=== PATIENT | female | born 1985 | race Caucasian/White ===

== ENCOUNTER → 2016-08-20 | Outpatient (CLI) | payer MEDICAID, OTHER ==
[2016-01-14 09:47] VITALS: BP 82/44
[2016-08-20 18:34] LABS: BILIRUBIN,URINE NEGATIVE (NEGATIVE); BLOOD/HEMOGLOBIN,URINE NEGATIVE (NEGATIVE); GLUCOSE, URINE NEGATIVE (NEGATIVE); KETONES,URINE NEGATIVE (NEGATIVE); LEUKOCYTE ESTERASE ,URINE 2+ (NEGATIVE); NITRITES,URINE NEGATIVE (NEGATIVE); PROTEIN,URINE 1+ (NEGATIVE); UROBILINOGEN,URINE 2+ (NORMAL)
[2016-08-20 18:40] LABS: BLOOD UREA NITROGEN 12 mg/dL (7-18); CALCIUM 8.8 mg/dL (8.5-10.1); CARBON DIOXIDE 25.3 mmol/L (21-32); CHLORIDE 103 mmol/L (98-107); COR NA(FOR HYPERGLY) 137 mmol/L (136-145); CREATININE 0.57 mg/dL (0.55-1.02); GLUCOSE 123 mg/dL (65-99); SODIUM 136 mmol/L (136-145); eGFR BLACK RACES > 60 (>60); eGFR NON BLACK RACES > 60 (>60)
[2016-08-20 18:47] LABS: APPEARANCE,URINE SLIGHTLY HAZY (CLEAR); BASOPHILS # (AUTO) 0.1 X10^3/uL (0.0-0.1); BASOPHILS % (AUTO) 0.5 % (0.2-1.0); COLOR,URINE DARK YELLOW (YELLOW); EOSINOPHILS # (AUTO) 0.1 x10^3/uL (0.0-0.2); EOSINOPHILS % (AUTO) 0.6 % (0.9-2.9); HEMATOCRIT 33.6 % (36.0-47.0); HEMOGLOBIN 11.5 g/dL (12.0-16.0); MEAN CORPUSCULAR HGB CONC 34.1 g/dL (33.0-35.0); MEAN CORPUSCULAR VOLUME 90.9 fL (80.0-100.0); MEAN PLATELET VOLUME 10.5 fL (7.4-11.0); MONOCYTES # (AUTO) 0.7 x10^3/uL (0.3-0.8); MONOCYTES % (AUTO) 5.7 % (0.0-13.0); NEUTROPHILS # (AUTO) 9.8 x10^3/uL (2.2-4.8); NEUTROPHILS % (AUTO) 77.2 % (42.0-75.0); PLATELET COUNT 238 X10^3/uL (150.0-450.0); RED CELL DISTRIBUTION WIDTH 12.5 % (11.6-16.5); WHITE BLOOD COUNT 12.7 X10^3/uL (3.6-10.0)
[2016-08-20 18:48] LABS: AMORPHOUS SEDIMENT,UR TRACE /HPF (NEGATIVE); BACTERIA,URINE 1+ /HPF (NEGATIVE); MUCUS,URINE FEW /HPF (NEGATIVE); SQUAMOUS EPITHELIAL CELL,UR NUMEROUS /HPF (NEGATIVE)
[2016-08-20 18:49] LABS: CALCIUM OXALATE CRYSTALS,UR MODERATE /HPF (NEGATIVE)
== END ==
LOC: LAB 17:49
PROVIDERS: ATTEND Specialist
DX: Z01.812 Encounter for preprocedural laboratory examination (principal); Z34.83 Encounter for supervision of other normal pregnancy, third trimester
CPT/HCPCS: 36415; 80048; 81001; 85025; 86592; 86850; 86900; 86901

== ENCOUNTER 2016-08-25 06:40 | Inpatient (IN) | payer MEDICAID, OTHER ==
[~2016-08-25 06:40] MED LIST: AMPICILLIN VIAL 2 GM ONE; D5 1/2 NS 1000 ML 1,000 ML IV ONE; D5 1/2 NS 1000ML W PITOCIN 20 U/L 1,000 ML IV ONE; D5LR 1000ML W PITOCIN 10 U/L 1,000 ML IV ONE; NS 100 ML IV 100 ML IV ONE; PITOCIN ONE
--- NOTE | 2016-08-25 07:14 | DR.OB ---
OB Quick Note - Assessment/Plan Assessment/Plan: L&D 08/25/16 at 7:05am S-No complaint. O-Afebrile,VSS VDM=550 with good LTV, +accel, no decel. CTX=mild irritability CVX=2cm/thick/-1/VTX AROM with clear fluid. IUPC and FSE placed. A-IUP at 38 3/7 weeks for induction Oligohydramnios +GBS Anemia P-Begin pitocin induction IV ABX in labor Anticipate
[2016-08-25] MEDS ORDERED: PHENERGAN INJ 25 MG IV PRN ×3 (07:43→11:53)
[2016-08-25] MEDS ORDERED: NUBAIN INJ 200 MG VIAL MULTIDOSE IVP PRN (07:43)
[2016-08-25] MEDS ORDERED: D5 1/2 NS 1000 ML 1,000 ML IV SCH (07:43)
[2016-08-25] MEDS ORDERED: PITOCIN 10 UNITS in D5 LR 1000 ML 1,000 ML IV PRN (07:43)
[2016-08-25] MEDS ORDERED: REGLAN INJ 10 MG VIAL IVP PRN ×2 (07:43→11:53)
[2016-08-25] MEDS ORDERED: MORPHINE SULFATE INJ 2 MG IVP PRN (07:43)
[2016-08-25] MEDS ORDERED: AMPICILLIN VIAL 2 GM 2 GM in NS 100 ML IV + SPIKE MINIBAG* 100 ML IV SCH (07:43)
[2016-08-25] MEDS ORDERED: AMPICILLIN VIAL 1 GM 1 GM in NS 50 ML IV + SPIKE MINIBAG* 50 ML IV SCH (07:43)
[2016-08-25] MEDS ORDERED: PITOCIN IVP ONE (07:43)
[2016-08-25] MEDS ORDERED: FENTANYL INJ 100 mcg ONE (09:03)
[2016-08-25] MEDS ORDERED: LR 1000 ML IV 1,000 ML IV ONE ×2 (09:04→09:12)
[2016-08-25] MEDS ORDERED: NAROPIN EPIDURAL 0.2% + FENTANYL 90MCG 60 ML EPI ONE (09:04)
[2016-08-25] MEDS ORDERED: FENTANYL INJ 100 mcg EPI ONE (09:12)
[2016-08-25] MEDS ORDERED: NAROPIN EPIDURAL 0.2% 60 ML with FENTANYL INJ 100 mcg 90 MCG IVP SCH ×2 (10:00)
[2016-08-25] MEDS ORDERED: MOTRIN TAB 800 MG PO PRN (10:47)
[2016-08-25] MEDS ORDERED: D5 1/2 NS 1000 ML 1,000 ML with PITOCIN 20 UNITS IV SCH ×2 (11:00)
[2016-08-25] MEDS: D5 1/2 NS 1000 ML 1,000 ML with PITOCIN 20 UNITS IV SCH ×4 (11:30→20:25)
[2016-08-25] MEDS ORDERED: AMBIEN PO PRN (11:53)
[2016-08-25] MEDS ORDERED: DERMOPLAST SPRAY TOP PRN (11:53)
[2016-08-25] MEDS ORDERED: ADACEL TDaP IM ONE ×2 (11:53→14:10)
[2016-08-25] MEDS ORDERED: MILK OF MAGNESIA PO PRN (11:53)
--- NOTE | 2016-08-25 13:30 | DR.OB ---
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 Head delivered over intact perineum. No nuchal cord. Nose and mouth bulb suctioned. Body delivered over intact perineum. Cord clamped x 2 and cut. Infant handed to attendant. Cord sent for gases. Placenta delivered manually / intact / 3 vessel cord as cord avulsed. No CVX / vaginal / perineal tears. Viable female infant, VTX/OA, wt=7'3" and 8/9, stable to NBN. Mother stable to RR. [id number].
[2016-08-25] MEDS: MOTRIN TAB 800 MG PO PRN (17:00)
[2016-08-25] MEDS: ZANTAC PO SCH (20:25)
[2016-08-26 05:10] LABS: HEMATOCRIT 34.5 % (36.0-47.0); HEMOGLOBIN 11.8 g/dL (12.0-16.0)
[2016-08-26] MEDS: D5 1/2 NS 1000 ML 1,000 ML with PITOCIN 20 UNITS IV SCH ×2 (05:24)
[2016-08-26] MEDS ORDERED: DEPO-PROVERA CONTRACEPTIVE INJ IM ONE (07:37)
[2016-08-26] MEDS: MOTRIN TAB 800 MG PO PRN (08:47)
[2016-08-26] MEDS ORDERED: PRENATAL PLUS PO SCH (09:00)
[2016-08-26] MEDS: ZANTAC PO SCH (09:36)
[2016-08-26 12:44] VITALS: BP 116/72
== END 2016-08-26 13:50 | disposition home or self-care (01) | DRG 775 ==
LOC: LD 06:40 → MED/SURG 13:21
PROVIDERS: ADMIT Specialist; ATTEND Specialist
PROC: 10E0XZZ Delivery of Products of Conception, External Approach (ICD-10-PCS; principal; 2016-08-25)
PROC: 10907ZC Drainage of Amniotic Fluid, Therapeutic from Products of Conception, Via Natural or Artificial Opening (ICD-10-PCS; 2016-08-25)
PROC: 3E033VJ Introduction of Other Hormone into Peripheral Vein, Percutaneous Approach (ICD-10-PCS; 2016-08-25)
PROC: 00HU33Z Insertion of Infusion Device into Spinal Canal, Percutaneous Approach (ICD-10-PCS; 2016-08-25)
PROC: 3E0234Z Introduction of Serum, Toxoid and Vaccine into Muscle, Percutaneous Approach (ICD-10-PCS; 2016-08-25)
DX: O41.03X0 Oligohydramnios, third trimester, not applicable or unspecified (principal); Z37.0 Single live birth; O99.824 Streptococcus B carrier state complicating childbirth; B95.1 Streptococcus, group B, as the cause of diseases classified elsewhere; O99.013 Anemia complicating pregnancy, third trimester; D50.8 Other iron deficiency anemias; O00.01 Abdominal pregnancy with intrauterine pregnancy; Z23 Encounter for immunization; Z3A.38 38 weeks gestation of pregnancy
CPT/HCPCS: 09167; 36415; 59409; 85014; 85018; A4222; S0197; J0290; J1050; J2590; J3010; J7042; J7120

== ENCOUNTER 2016-11-23 21:09 | Emergency (ER) | payer OTHER ==
[2016-11-23 21:17] VITALS: BP 121/69; BMI 29.9
--- NOTE | 2016-11-23 23:55 | DR.GENAD ---
HPI - PCP Primary Care Physician: SAURAV - HPI Comment HPI Comment: PATIENT HIT TOE. HAPPEN BEFORE COMMING. - Complaint/Symptoms Chief Complaint Doctors Comments: LEFT GREAT TOE INJURY, NAIL ALMOST OFF. HAPPEN TODAY. Chief Complaint:: LEFT GREAT TOE WAS HIT BY A DOOR AND LEFT GREAT TOENAIL IS LIFTED. LEFT GREAT TOE PAIN WHEN BENDING. - Nurses notes reviewed Nurses Notes Review: Yes - Source History Provided: Patient - Mode of Arrival Mode of Arrival: Ambulatory - Timing Onset of Chief Complaint: 11/23/16 Came on: Suddenly - Duration Duration: Constant Duration: Hours PMH - PMH Past Medical History: Yes Past Medical History: Anxiety Past Surgical History: No - Family History History of Family Medical Conditions: Yes Family Medical History: Diabetes Mellitus, Cancer, Hypertension - Social History Type of Tobacco Use: None Alcohol Use: None Do you use any recreational Drugs:: No Lives With: Family Lives Where: Home - infectious screening In the last 2 months have you had wt loss of >10#?: NO Have you had fever, night sweats or hemotysis?: No Have you traveled outside the country in the last 6 months?: No Isolation: Standard ROS - Review of Systems Constitutional: No Symptoms Reported Eyes: No Symptoms Reported ENTM: No Symptoms Reported Respiratoy: No Symptoms Reported Cardiovascular: No Symptoms Reported Gastrointestinal/Abdominal: No Symptoms Reported Genitourinary: No Symptoms Reported Neurological: No Symptoms Reported Musculoskeletal: Left, Foot Integumentary: Change in Color, Bruises, Other (NAIL BED INJURY LT GREAT TOE.) Hematologic/Lymphatic: No Symptoms Reported Endocrine: No Symptoms Reported All Other Systems: Reviewed and Negative PE - Vital Signs Vitals: Temperature 98.3 F Pulse Rate 93 Respiratory Rate 22 Blood Pressure [Left Arm] 126/60 Blood Pressure [Right Arm] 116/72 Blood Pressure 121/69 O2 Sat by Pulse Oximetry 98 - General Limitations: No Limitations General Appearance: Alert - Head Head Exam: Normal Inspection - Eyes Eye exam: Normal Appearance - ENT ENT Exam: Normal External Ear Exam External Ear Exam: Normal External Inspection TM/Canal Exam: Bilateral Normal Nose Exam: Normal Nose Exam Mouth Exam: Normal Inspection - Neck Neck Exam: Trachea Midline - Chest Chest Inspection: Symmetric Chest Wall Rise - Respiratory Respiratory Exam: Normal Lung Sounds Bilat Respiratory Exam: Bilateral Clear to Auscultation, Bilateral Wheezing, Bilateral Rales, Bilateral Rhonchi, Bilateral Crackles, Bilateral Decreased Breath Sounds, Bilateral Dullness on Percussion - Abdominal Exam Abdominal Exam: Normal Inspection - Extremities Extremities Exam: Tenderness (SWELLING, BRUISING AND TENDERNESS LT GREAT TOE, NAIL ALMOST OFF GREAT TOE.) - Back Back Exam: Normal Inspection - Neurologic Neurological Exam: Alert, Oriented X3 - Psychiatric Psychiatric Exam: Normal Affect, Normal Mood - Skin Skin Exam: Erythema, Other (LT GREAT TOE ALMOST OFF. SWELLING AND TENDERNESS LT BIG TOE.) MDM - Differential Diagnosis Differential Diagnosis: FRACTURE, SPRAIN, CONTUSION AND LAC LEFT GREAT TOE. Course - Treatment Treatment: SEE ORDERS. - Education/Counseling Education/Counseling: Patient, Education Educated On: Diagnosis, Needs for Follow Up ROR - XRAY XRAY Interpreted by: Radiologist XRAY Findings: REPORT DISCUSS WITH PATIENT. - Diagnosis Discharge Problem: Injury of nail bed of toe Fracture of toe of left foot Qualifiers: Encounter type: initial encounter Toe: great toe Fracture type: closed Phalanx : distal Fracture alignment: nondisplaced Qualified Code(s): S92.425A - Nondisplaced fracture of distal phalanx of left great toe, initial encounter for closed fracture - Discharge Plan Disposition: 01 HOME, SELF-CARE Condition: Stable Prescriptions: Ibuprofen [MOTRIN TAB 800 MG *] 800 mg PO Q8H PRN #20 tab PRN Reason: Pain/Inflammation - Follow ups/Referrals Follow ups/Referrals: SIM CARIAS [Primary Care Provider] - 3 days CARRILLO SOLIS [STAFF PHYSICIAN] - 3 days DERIAN WARREN [STAFF PHYSICIAN] - 2 days - Instructions Instructions: Toe Fracture, [id number], Nail Bed Laceration Additional Instructions: RETURN TO ED IF WORSE.
--- NOTE | 2016-11-24 00:40 | RAD ---
EXAM: Left foot x-ray INDICATION: Pain 1st digit COMPARISION: None TECHNIQUE: AP, lateral, and oblique, three views FINDINGS: There is a T-shaped fracture extending through the mid to proximal aspect of the distal phalanx of th e 1st digit. Fracture is nondisplaced. Fracture extends to the articular surface. The joint spaces ar e preserved. The soft tissues are normal. No radiopaque foreign body. IMPRESSION: There is nondisplaced fracture of the distal phalanx of the 1st digit. Reported By:
[2016-11-24] MEDS ORDERED: NEOSPORIN OINT TOP ONE (01:18)
[2016-11-24] MEDS ORDERED: NEOSPORIN OINT ONE (01:19)
== END 2016-11-24 01:40 | disposition home or self-care (01) ==
LOC: ER 21:09
DX: S92.425A Nondisplaced fracture of distal phalanx of left great toe, initial encounter for closed fracture (principal); S99.922A Unspecified injury of left foot, initial encounter; X58.XXXA Exposure to other specified factors, initial encounter; Y92.9 Unspecified place or not applicable
CPT/HCPCS: 73630; 99282

== ENCOUNTER → 2017-02-25 | Outpatient (CLI) | payer OTHER ==
--- NOTE | 2017-02-25 15:28 | MRI ---
HISTORY: Back pain Study: MRI lumbar spine without contrast Comparison: None Technique: Multi planar multi sequence noncontrast imaging Findings: The vertebral body alignment and bone signal is normal. The disc levels are evaluated as follows: T12-L1 level: No evidence for compressive disc disease. The neural foramina are patent. The joints ar e normal. L1-2 level: No evidence for compressive disc disease. The neural foramina are patent. The joints are normal. L2-3 level: No evidence for compressive disc disease. The neural foramina are patent. The joints are normal. L3-4 level: No evidence for compressive disc disease. The neural foramina are patent. The joints are normal. L4-5 level: There is mild desiccation of the disc. There is no evidence for compressive disc disease. The neural foramina are patent. The joints are normal. L5-S1 level: No evidence for compressive disc disease. The neural foramina are patent. The joints are normal. IMPRESSION: As above Reported By:
== END | disposition home or self-care (01) | DRG 552 ==
LOC: RAD 14:09
PROVIDERS: ATTEND Specialist
DX: M54.5 Low back pain (principal); M51.86 Other intervertebral disc disorders, lumbar region
CPT/HCPCS: 72148

== ENCOUNTER → 2017-04-17 | Outpatient (CLI) | payer OTHER ==
--- NOTE | 2017-04-17 13:48 | MRI ---
STUDY: MRI OF THE THORACIC SPINE History: Radiculopathy. Mid back pain. Technique: An MRI examination of thoracic spine was performed using sagittal T1, T2, T2 STIR, and axi al T1 and T2 GRE images. Comparison: None. Findings: Vertebral body alignment is within normal limits. Marrow signal is age-appropriate. There i s a probable hemangioma in the T9 vertebral body asymmetric on the right. There is some persistent T2 signal on STIR image 5. Intervertebral discs are fairly well preserved. There is no evidence of th oracic spinal cord compression. No intrinsic signal abnormalities are identified within the thoracic spinal cord itself. Axial images show no evidence of focal disc bulge or focal disk herniation. There is no evidence of c ord compression. There is no evidence of significant spinal stenosis. There is no significant neural foraminal stenosis. Impression: 1. Unremarkable MRI examination of the thoracic spine. 2. No evidence of significant spinal stenosis or neural foraminal narrowing. Reported By:
== END ==
LOC: RAD 09:37
PROVIDERS: ATTEND Neurological Surgery
DX: M54.16 Radiculopathy, lumbar region (principal)
CPT/HCPCS: 72146

== ENCOUNTER → 2017-04-23 | Outpatient (CLI) | payer OTHER ==
--- NOTE | 2017-04-24 08:06 | CT ---
Exam: CT of the lumbar spine History: 31-year-old female with lower back pain Comparison: Previous MRI of the lumbar spine from 02/25/2017 Findings: Axial imaging was performed through the lower thoracic and lumbar spine with subsequent sag ittal and coronal reformations. At the L4-5 level, a mild broad-based central and right-sided disc bulging is again seen. This result s in mild encroachment on the right neural foramen. The left neural foramen and spinal canal are wide ly patent however. At the other lumbar levels, the discs are normal appearing with no significant bulge or protrusion. S david canal and neural foramina are widely patent at these levels. IMPRESSION: At the L4-5 level, broad-based central and right-sided disc bulging results in mild right foraminal c ompromise. Remainder of the exam is unremarkable. Findings have not changed significantly since the p revious lumbar MRI from 02/25/2017. Reported By:
== END ==
LOC: RAD 13:55
PROVIDERS: ATTEND Neurological Surgery
DX: M54.16 Radiculopathy, lumbar region (principal)
CPT/HCPCS: 72131